=== PATIENT | female | born 1955 | race Caucasian/White ===

== ENCOUNTER 2019-03-27 11:44 | Outpatient (CLI) | payer BC, SELFPAY ==
--- NOTE | ~2019-03-27 | MMUS_ITS ---
EXAMINATION: MM diagnostic mammo BI, US breast BI complete HISTORY: Bilateral breast masses reported on 03/09/2019 bilateral digital screening mammogram TECHNIQUE: Additional 3-D tomosynthesis images of both breasts were performed and synthetic 2-D image s were generated. CAD analysis was submitted and interpreted. High resolution complete bilateral [facility] ultrasound was performed. COMPARISON: 03/09/2019 bilateral digital screening mammogram FINDINGS: MAMMOGRAPHIC FINDINGS: Bilateral partially obscured approximately 5-6 mm masses are suggested in the upper mid breast. Addit ional masses may be present but obscured by the heterogeneously dense stroma. Bilateral complete [address] ultrasound examination was performed. ULTRASOUND: Right breast: 12:00 1 cm from nipple: 5.4 x 4.7 x 2.2 mm simple cyst. 1:00 4 cm from nipple: 3.5 x 2.1 x 2.8 mm simple cyst 2:00 1 cm from nipple: 3.2 x 3.0 x 2.0 mm simple cyst 8:00 5 cm from nipple: 7.5 x 9.1 x 4.0 mm parallel circumscribed hypoechoic lesion without internal v ascularity or posterior shadowing,, benign sonographic features. 10:00 7 cm from nipple: 5.5 x 8.4 x 5.0 mm benign-appearing lymph node 11:00 4 cm from nipple: 8.0 x 4.1 x 6.9 mm probable intramammary lymph node, without shadowing No suspicious solid lesion or shadowing is detected. Left breast: 1:00 3 cm from nipple: 6.9 x 6.2 x 3.4 mm parallel circumscribed hypoechoic lesion with fatty hilus s uggesting benign-appearing intramammary lymph node 2:00 3 cm from nipple: 6.4 x 2.8 x 5.3 mm parallel circumscribed hypoechoic lesion with through trans mission, 9 in appearance 4:00 2 cm from nipple: Parallel circumscribed 2.1 x 7.5 x 2.5 mm sonolucency, likely a cyst 6:00 1 cm from nipple: Parallel circumscribed 6.9 x 3.0 x 3.3 mm probable septated cyst 8:00 1 cm from nipple: 4.1 x 2.4 x 3.4 mm cyst No suspicious solid lesion or shadowing is detected. IMPRESSION: 1. No mammographic evidence of malignancy 2. Routine annual mammographic screening is recommended BI-RADS Category 2: Benign finding(s). Reviewed, dictated and finalized at location A. EXPERT IMPRESSION: 1. No mammographic evidence of malignancy 2. Routine annual mammographic screening is recommended BI-RADS Category 2: Benign finding(s).
== END 2019-03-27 11:45 | disposition home or self-care (01) ==
LOC: ANHIMG 11:47
PROVIDERS: PCP Family Medicine; Visit Provider Family Medicine
DX: R92.8 Other abnormal and inconclusive findings on diagnostic imaging of breast (principal)
CPT/HCPCS: 76641; 77066

== ENCOUNTER 2020-04-21 08:04 | Outpatient (CLI) | payer BC, SELFPAY ==
--- NOTE | ~2020-04-21 | MM_ITS ---
EXAMINATION: MM screening [facility] BI w nicholas HISTORY: Screening mammogram TECHNIQUE: Craniocaudal and mediolateral oblique 3-D tomosynthesis images were obtained and synthetic 2-D images were generated. CAD analysis was submitted and interpreted. COMPARISON: 03/19/2019, 03/09/2019, 11/28/2017 BREAST PARENCHYMAL COMPOSITION: The breasts are heterogeneously dense, which may obscure small masses . FINDINGS: There is no evidence of suspicious mass, calcification, or architectural distortion to sugg est malignancy in either breast. There has been no suspicious interval change. IMPRESSION: 1. No mammographic evidence of malignancy. 2. Recommend routine screening mammography in one year. BI-RADS Category 1: Negative Reviewed, dictated and finalized at location A. 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
== END 2020-04-21 08:05 | disposition home or self-care (01) ==
LOC: ANHIMG 08:09
PROVIDERS: PCP Family Medicine; Visit Provider Family Medicine
DX: Z12.31 Encounter for screening mammogram for malignant neoplasm of breast (principal)
CPT/HCPCS: 77063; 77067

== ENCOUNTER 2021-08-06 14:13 | Outpatient (RCR) | payer BC, SELFPAY ==
[2021-08-06 15:08] VITALS: BP 134/82; PULSE 82; RESP 18; TEMP 36.7; O2SAT 97
[2021-08-06] MEDS: diphenhydrAMINE HCl CAP 25 MG CAPSULE PO (15:10)
[2021-08-06] MEDS: FAMOTIDINE 20 MG TABLET PO (15:10)
[2021-08-06] MEDS: ACETAMINOPHEN 325 MG TABLET 650 MG PO (15:10)
[2021-08-06] MEDS: BEBTELOVIMAB 175 MG/2 ML VIAL IV PUSH (15:36)
[2021-08-06 16:18] VITALS: BP 135/78
== END 2021-08-06 16:00 ==
LOC: AMCINF 14:13
PROVIDERS: PCP Family Medicine; Referring Provider Family Medicine; Visit Provider Internal Medicine Hematology & Oncology
DX: U07.1 COVID-19 (principal); I10 Essential (primary) hypertension
CPT/HCPCS: A9270; M0222; Q0222

== ENCOUNTER 2022-06-11 10:16 | Outpatient (CLI) | payer BC, SELFPAY ==
--- NOTE | ~2022-06-11 | MM_ITS ---
EXAMINATION: MM screening [facility] BI w nichloas HISTORY: Screening mammogram TECHNIQUE: Craniocaudal and mediolateral oblique 3-D tomosynthesis images were obtained and synthetic 2-D images were generated. CAD analysis was submitted and interpreted. COMPARISON: April 21, 2020 bilateral screening mammogram March 27, 2019 bilateral diagnostic mammogram and complete bilateral breast ultrasound examination BREAST PARENCHYMAL COMPOSITION: The breasts are heterogeneously dense, which may obscure small masses . FINDINGS: Bilateral breast masses are suggested. Bilateral diagnostic mammogram and bilateral breast ultrasound examination are recommenced IMPRESSION: 1. Possible bilateral breast masses 2. Bilateral diagnostic mammography and bilateral breast ultrasound examination are recommended BI-RADS Category 0: Incomplete: Needs additional imaging evaluation. Reviewed, dictated and finalized at location A.
== END 2022-06-11 10:17 | disposition home or self-care (01) ==
LOC: ANHIMG 10:20
PROVIDERS: PCP Family Medicine; Visit Provider Family Medicine
DX: Z12.31 Encounter for screening mammogram for malignant neoplasm of breast (principal)
CPT/HCPCS: 77063; 77067

== ENCOUNTER 2022-07-01 12:57 | Outpatient (CLI) | payer BC, SELFPAY ==
--- NOTE | ~2022-07-01 | MM_ITS ---
EXAMINATION: MM diagnostic jaclyn BI w nicholas HISTORY: Possible breast masses on screening mammogram TECHNIQUE: Additional 3-D tomosynthesis images of the breasts were performed and synthetic 2-D images were generated. CAD analysis was submitted and interpreted. COMPARISON: 06/11/2022, 04/21/2020, 03/27/2019, 03/09/2019 FINDINGS: There is a return to baseline fibroglandular appearance with spot compression of the breast s in the areas questioned on screening mammogram. Waxing and waning bilateral breast masses are noted , consistent with benign findings. IMPRESSION: 1. No mammographic evidence of malignancy. 2. Recommend routine screening mammography in one year. BI-RADS Category 2: Benign finding(s). Reviewed, dictated and finalized at location A.
== END 2022-07-01 12:58 | disposition home or self-care (01) ==
LOC: ANHIMG 12:58
PROVIDERS: PCP Family Medicine; Visit Provider Family Medicine
DX: R92.8 Other abnormal and inconclusive findings on diagnostic imaging of breast (principal)
CPT/HCPCS: 77062; 77066; G0279

== ENCOUNTER 2023-09-27 16:14 | Outpatient (CLI) | payer BC, SELFPAY ==
--- NOTE | ~2023-09-27 | MM_ITS ---
EXAMINATION: MM screening a[facility] BI w nicholas HISTORY: Screening TECHNIQUE: Craniocaudal and mediolateral oblique 3-D tomosynthesis images were obtained and synthetic 2-D images were generated. CAD analysis was submitted and interpreted. COMPARISON: Comparison to multiple prior studies sequentially, with oldest reviewed study dated 02/2017. BREAST PARENCHYMAL COMPOSITION: There are scattered areas of fibroglandular density. FINDINGS: There is no evidence of suspicious mass, calcification, or architectural distortion to sugg est malignancy in either breast. There has been no suspicious interval change. IMPRESSION: 1. No mammographic evidence of malignancy. 2. Recommend routine screening mammography in one year. BI-RADS Category 1: Negative Reviewed, dictated and finalized at location B.
== END 2023-09-27 16:15 | disposition home or self-care (01) ==
LOC: ANHIMG 16:15
PROVIDERS: PCP Family Medicine; Visit Provider Family Medicine
DX: Z12.31 Encounter for screening mammogram for malignant neoplasm of breast (principal)
CPT/HCPCS: 77063; 77067

== ENCOUNTER 2024-06-06 10:25 | Outpatient (CLI) | payer MEDICARE, SELFPAY ==
--- NOTE | ~2024-06-06 | XR_ITS ---
EXAM/ PROCEDURE: XR lumbar spine 6V w bending - 06/06/2024 10:45 CDT HISTORY: 68 years old Female with M54.16 - Radiculopathy, lumbar region COMPARISON: None available TECHNIQUE: 9 view(s) FINDINGS/ IMPRESSION: There are no fractures or dislocations.Intervertebral disc spaces are within normal limits. Degenerative changes are seen in the spine. No pars defect seen. Cholecystectomy clips are noted. If there are clinical signs of radiculopathy, outpatient MRI of the spine can be performed for proper evaluation, as clinically indicated. Reviewed, dictated and finalized at location A.
--- OUTSIDE RECORDS SUMMARY | 2024-06-06 11:56 | XMS_ITS | Continuity of Care Document ---
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 [address] , [address], [place], [address], [place]. tel:[phone] Family History Family Member Type Diagnosis Age At Onset No Information Payers Payer name Insurance type Covered democrat ID Authoriza tion(s) No Information Social History Type Description Quantity Date Captured Comments Sex Female Smoking Status No Information Chief Complaint And Reason For Visit No Information Reason For Referral Reason For Referral No Information History Of Present Illness Encounter Date Complaint History Of Prese nt Illness No Information Functional Status Date Functional Assessmen t No Information Instructions Date Instruction Additional Infor mation No Information Assessments Type Assessment Date No Information Patient Care Teams Name Effective Dates (start - stop) Status Members No Information
== END 2024-06-06 10:26 | disposition home or self-care (01) ==
PROVIDERS: PCP Family Medicine; Visit Provider Family Medicine
DX: M51.369 Other intervertebral disc degeneration, lumbar region without mention of lumbar back pain or lower extremity pain (principal); Z90.49 Acquired absence of other specified parts of digestive tract; M48.061 Spinal stenosis, lumbar region without neurogenic claudication; M47.816 Spondylosis without myelopathy or radiculopathy, lumbar region
CPT/HCPCS: 72114